=== PATIENT | female | born 1975 | race Caucasian/White ===

== ENCOUNTER 2022-04-22 15:08 | Outpatient (REF) | payer BC, SELFPAY ==
[2022-04-22 18:49] LABS: HCT 39.5 % (36.0-46.0); HGB 13.7 g/dL (11.2-15.7); MCHC 34.7 % (32.0-36.0); MCV 95 fL (80-95); MPV 11.7 fL (8.0-11.0); Platelet Count 179 10^3/uL (130-400); RBC 4.15 10^6/uL (3.93-5.22); RDW 12.9 % (11.7-14.6); RDW-SD 45.4 fL; WBC 7.39 10^3/uL (4.4-10.8)
[2022-04-22 19:11] LABS: ALT 24 U/L (14-59); AST 20 U/L (15-37); Alkaline Phosphatase 54 U/L (46-116); Anion Gap 10.9 mmol/L (3-11); BUN 13 mg/dL (7-18); Bilirubin, Total 0.4 mg/dL (0.2-1.0); CO2 26.1 mmol/L (21.0-32.0); CREATININE 0.8 mg/dL (0.55-1.02); Calcium 8.8 mg/dL (8.5-10.1); Chloride 103 mmol/L (98-107); Glucose 90 mg/dL (74-106); Potassium 3.9 mmol/L (3.5-5.1); Sodium 140 mmol/L (136-145); Total Protein 6.9 g/dL (6.4-8.2)
[2022-04-22 19:24] LABS: Iron 99 ug/dL (50-170); Total Iron Binding Capacity 337 ug/dL (250-450); Transferrin Sat 29 % (15-50)
== END 2022-04-22 15:09 | disposition home or self-care (01) ==
LOC: NCHCN 15:08
PROVIDERS: PCP Internal Medicine; Visit Provider Nurse Practitioner Family
DX: M79.605 Pain in left leg (principal); M79.604 Pain in right leg
CPT/HCPCS: 80053; 85027; 83540; 83550